=== PATIENT | male | born 1960 | race Two or more races ===

== ENCOUNTER 2021-11-10 12:51 | Emergency (ER) | payer OTHER ==
[~2021-11-10] VITALS: Ht 182.9 cm; Wt 159.1 kg
[2021-11-10 12:55] VITALS: BP 186/86
[2021-11-10] MEDS ORDERED: [UNRECOGNIZED DRUG - CODE] SUBCUT (13:12)
== END 2021-11-10 13:22 | disposition home or self-care (01) ==
LOC: ER 12:53
DX: E11.9 Type 2 diabetes mellitus without complications (principal); E78.00 Pure hypercholesterolemia, unspecified; I10 Essential (primary) hypertension; G89.29 Other chronic pain; Z76.0 Encounter for issue of repeat prescription; Z79.899 Other long term (current) drug therapy
CPT/HCPCS: 99281

== ENCOUNTER 2024-03-05 12:16 | Emergency (ER) | payer OTHER ==
[~2024-03-05] VITALS: Ht 182.9 cm; Wt 154.6 kg
[~2024-03-05 12:16] MED LIST: [UNRECOGNIZED DRUG - CODE] SUBCUT
[2024-03-05 12:26] VITALS: BP 130/54; PULSE 67; RESP 16; TEMP 98.2; O2SAT 97
[2024-03-05 13:44] LABS: BASOPHILS # (AUTO) 0.1 X10'3 (0-0.2); BASOPHILS % (AUTO) 0.8 % (0-1); EOSINOPHILS # (AUTO) 0.2 X10'3 (0-0.9); HEMATOCRIT 45.5 % (42.0-52.0); HEMOGLOBIN 14.7 g/dl (14.0-17.9); LYMPHOCYTES # (AUTO) 1.9 X10'3 (1.1-4.8); LYMPHOCYTES % (AUTO) 18.1 % (21-51); MEAN CORPUSCULAR HEMOGLOBIN 27.3 PG (27.0-31.0); MEAN CORPUSCULAR HGB CONC 32.3 g/dL (33.0-36.5); MEAN CORPUSCULAR VOLUME 84.4 FL (78-98); MEAN PLATELET VOLUME 7.7 FL (7.4-10.4); MONOCYTES # (AUTO) 0.7 X10'3 (0-0.9); MONOCYTES % (AUTO) 7.2 % (2-12); NEUTROPHILS # (AUTO) 7.3 X10'3 (1.8-7.7); NEUTROPHILS % (AUTO) 71.9 % (42-75); PLATELET COUNT 205 X10'3 (140-440); RED BLOOD COUNT 5.39 X10'6 (4.70-6.10); RED CELL DISTRIBUTION WIDTH 15.8 % (11.5-14.5); WHITE BLOOD COUNT 10.2 X10'3 (4.5-11.0)
[2024-03-05 14:06] LABS: ALBUMIN 3.2 G/DL (3.4-5.0); ANION GAP 8 (8-16); BLOOD UREA NITROGEN 22 MG/DL (7-18); BUN/CREATININE RATIO 20.8 (10.0-20.0); CALCIUM 8.9 MG/DL (8.5-10.1); CHLORIDE 105 MMOL/L (99-107); CREATININE 1.06 MG/DL (0.60-1.10); GLUCOSE 74 MG/DL (70-104); POTASSIUM 4.2 MMOL/L (3.5-5.1); PRO BRAIN NATRIURETIC PEPTIDE 156 PG/ML (0-125); SODIUM 138 MMOL/L (135-145); TOTAL CARBON DIOXIDE 24.9 MMOL/L (24-32); eCRCL 77 ML/MIN; eGFR 70 ML/MIN
== END 2024-03-05 13:11 | disposition left against medical advice (07) ==
LOC: ER 12:17
DX: R07.89 Other chest pain (principal); F41.9 Anxiety disorder, unspecified; Z53.21 Procedure and treatment not carried out due to patient leaving prior to being seen by health care provider
CPT/HCPCS: 36415; 71045; 80048; 83880; 84484; 85025; 93005

== ENCOUNTER 2024-03-09 10:23 | Day surgery (SDC) | payer OTHER ==
[2024-03-09] VITALS (8 sets, daily range): BP systolic 117–165; BP diastolic 48–95; PULSE 65–87; RESP 16–20; TEMP 97.4; O2SAT 93–96
[~2024-03-09] VITALS: Ht 180.3 cm; Wt 153.0 kg
[2024-03-09] MEDS ORDERED: SEMA1PEN3 SUBCUT (11:11)
[2024-03-09] MEDS ORDERED: RIVA10TA PO (11:11)
[2024-03-09] MEDS ORDERED: GABA-530 PO (11:11)
[2024-03-09] MEDS ORDERED: BUPR-319 PO (11:11)
[2024-03-09] MEDS ORDERED: CHOL20004 PO (11:11)
[2024-03-09] MEDS ORDERED: ATOR40TA PO (11:11)
[2024-03-09] MEDS ORDERED: LISI40TA13 PO (11:11)
[2024-03-09] MEDS ORDERED: LANTUS SUBCUT (11:11)
[2024-03-09] MEDS ORDERED: EMPA25TA PO (11:11)
[2024-03-09] MEDS ORDERED: FOLI0.4T6 PO (11:11)
[2024-03-09] MEDS ORDERED: INSU100I50 SQ (11:11)
[2024-03-09 11:53] LABS: APTT 27 SECONDS (22-32); INR 1.1 INR; PROTHROMBIN TIME 11.4 SECONDS (9.0-12.0)
[2024-03-09] MEDS ORDERED: nitroGLYCERIN 500mcg/5mL D5W 5 ML IV ONE (11:58)
[2024-03-09] MEDS ORDERED: LIDOcaine 1% (10mg/ml) 2ml vial ONE ×2 (11:59→12:21)
[2024-03-09] MEDS ORDERED: iohexol 350 MG/ML 50ML vial IV ONE (11:59)
[2024-03-09] MEDS ORDERED: midazolam 1 mg/ML 2ml injection ONE ×2 (11:59→13:30)
[2024-03-09] MEDS: diphenhydrAMINE 25mg capsule PO PRN (11:59)
[2024-03-09] MEDS ORDERED: heparin 1,000unit/ml 10ml vial 10 ML ONE (11:59)
[2024-03-09] MEDS ORDERED: fentaNYL/PF 50MCG/1 ML 2ML syringe ONE (11:59)
[2024-03-09] MEDS: LORazepam 0.5 MG tablet PO PRN (11:59)
[2024-03-09] MEDS ORDERED: iohexol 350MG/ML 100ml bottle IV ONE (12:00)
[2024-03-09] MEDS ORDERED: verapamil 2.5 mg/ml inj IV ONE (12:00)
[2024-03-09] MEDS: normal saline 1,000 ML IV SCH (12:00)
[2024-03-09] MEDS ORDERED: OXAZEpam 15mg capsule PO PRN (14:35)
[2024-03-09] MEDS ORDERED: HYDROcodone/acetaminophen 5mg/325mg tablet PO PRN (14:35)
[2024-03-09] MEDS ORDERED: proCHLORperazine 10 MG/2 ml inj IV PRN (14:35)
[2024-03-09] MEDS ORDERED: ondansetron/PF 4mg/2ml inj IV PRN (14:35)
[2024-03-09] MEDS ORDERED: HYDROcodone/acetaminophen 10/325mg tab PO PRN (14:35)
[2024-03-09 14:58] LABS: ISTAT HGB MIX 13.3 g/dl (14.0-17.9); ISTAT Hct MIX 39 %PCV (42-52); ISTAT O2 SATURATION MIX VENOUS 67 % (60-80); ISTAT SOURCE VEN
== END 2024-03-09 16:00 | disposition home or self-care (01) ==
LOC: SSTAY O 10:23
PROVIDERS: ATTEND Student in an Organized Health Care Education/Training Program
DX: I35.0 Nonrheumatic aortic (valve) stenosis (principal); I10 Essential (primary) hypertension; E11.9 Type 2 diabetes mellitus without complications; I25.10 Atherosclerotic heart disease of native coronary artery without angina pectoris; E78.00 Pure hypercholesterolemia, unspecified; G47.33 Obstructive sleep apnea (adult) (pediatric); F32.A Depression, unspecified; E66.9 Obesity, unspecified; F43.10 Post-traumatic stress disorder, unspecified; F12.90 Cannabis use, unspecified, uncomplicated; Z79.4 Long term (current) use of insulin; Z79.1 Long term (current) use of non-steroidal anti-inflammatories (NSAID); Z79.899 Other long term (current) drug therapy; Z98.890 Other specified postprocedural states; Z68.42 Body mass index [BMI] 45.0-49.9, adult
CPT/HCPCS: 36415; 82803; 82948; 85014; 85610; 85730; 93005; 93456; 99152; 99153; J1644; J2250; J3010; J3490; J7030; Q0163; Q9967; A6258; A6402; C1751; C1894

== ENCOUNTER 2024-04-06 11:14 | Outpatient (CLI) | payer OTHER ==
[~2024-04-06 11:14] MED LIST changes: +ATOR40TA PO; +BUPR-565 PO; +CHOL20004 PO; +EMPA25TA PO; +FOLI0.4T6 PO; +GABA-530 PO; +INSU100I50 SQ; +LANTUS SUBCUT; +LISI40TA13 PO; +RIVA10TA PO; +SEMA1PEN3 SUBCUT
[2024-04-06 11:51] LABS: BASOPHILS # (AUTO) 0.1 X10'3 (0-0.2); BASOPHILS % (AUTO) 0.9 % (0-1); EOSINOPHILS # (AUTO) 0.1 X10'3 (0-0.9); EOSINOPHILS % (AUTO) 1.4 % (0-6); HEMATOCRIT 45.4 % (42.0-52.0); HEMOGLOBIN 14.9 g/dl (14.0-17.9); LYMPHOCYTES # (AUTO) 1.5 X10'3 (1.1-4.8); LYMPHOCYTES % (AUTO) 13.7 % (21-51); MEAN CORPUSCULAR HEMOGLOBIN 27.3 PG (27.0-31.0); MEAN CORPUSCULAR HGB CONC 32.8 g/dL (33.0-36.5); MEAN CORPUSCULAR VOLUME 83.3 FL (78-98); MEAN PLATELET VOLUME 7.8 FL (7.4-10.4); MONOCYTES # (AUTO) 0.6 X10'3 (0-0.9); MONOCYTES % (AUTO) 5.7 % (2-12); NEUTROPHILS # (AUTO) 8.7 X10'3 (1.8-7.7); NEUTROPHILS % (AUTO) 78.3 % (42-75); PLATELET COUNT 179 X10'3 (140-440); RED BLOOD COUNT 5.46 X10'6 (4.70-6.10); RED CELL DISTRIBUTION WIDTH 16.4 % (11.5-14.5); WHITE BLOOD COUNT 11.1 X10'3 (4.5-11.0)
[2024-04-06 11:59] LABS: APTT 29 SECONDS (22-32); INR 1.1 INR; PROTHROMBIN TIME 11.4 SECONDS (9.0-12.0)
[2024-04-06 12:01] LABS: ALANINE AMINOTRANSFERASE 32 U/L (12-78); ALBUMIN 3.2 G/DL (3.4-5.0); ALBUMIN/GLOBULIN RATIO 0.8 (1.1-1.5); ALKALINE PHOSPHATASE 89 IU/L (46-116); ANION GAP 8 (8-16); ASPARTATE AMINO TRANSFERASE 16 U/L (10-37); BILIRUBIN,TOTAL 0.7 MG/DL (0.1-1.0); BLOOD UREA NITROGEN 25 MG/DL (7-18); BUN/CREATININE RATIO 23.8 (10.0-20.0); CALCIUM 9.5 MG/DL (8.5-10.1); CHLORIDE 103 MMOL/L (99-107); CREATININE 1.05 MG/DL (0.60-1.10); GLUCOSE 118 MG/DL (70-104); POTASSIUM 4.4 MMOL/L (3.5-5.1); SODIUM 139 MMOL/L (135-145); TOTAL CARBON DIOXIDE 27.7 MMOL/L (24-32); TOTAL PROTEIN 7.4 G/DL (6.4-8.2); eGFR 71 ML/MIN
[2024-04-06 12:08] LABS: PRO BRAIN NATRIURETIC PEPTIDE 151 PG/ML (0-125)
[2024-04-06] MEDS ORDERED: IODIXANOL 320 MG/ML INFUS..BTL 100ML IV ONE (12:13)
== END 2024-04-06 23:59 | disposition home or self-care (01) ==
LOC: 64 CT 11:14
PROVIDERS: ATTEND Internal Medicine Cardiovascular Disease
DX: R91.1 Solitary pulmonary nodule (principal); I35.0 Nonrheumatic aortic (valve) stenosis; R06.02 Shortness of breath; N28.1 Cyst of kidney, acquired; I65.29 Occlusion and stenosis of unspecified carotid artery; J43.9 Emphysema, unspecified; J84.10 Pulmonary fibrosis, unspecified
CPT/HCPCS: 36415; 71046; 71275; 74174; 75572; 80053; 83880; 85025; 85610; 85730; Q9967

== ENCOUNTER 2024-06-15 18:39 | Emergency (ER) | payer OTHER ==
[~2024-06-15] VITALS: Ht 177.8 cm; Wt 144.1 kg
[~2024-06-15 18:39] MED LIST changes: +ASPI81TA53 PO; -FOLI0.4T6 PO; +HYDR-3972 PO; +IPRA4AER INH; -LISI40TA13 PO; +LOP25T PO; -RIVA10TA PO; +WARF2.5T82 PO; -[UNRECOGNIZED DRUG - CODE] SUBCUT
[2024-06-15 19:23] LABS: ALANINE AMINOTRANSFERASE 31 U/L (12-78); ALBUMIN/GLOBULIN RATIO 0.8 (1.1-1.5); ALKALINE PHOSPHATASE 85 IU/L (46-116); ANION GAP 8 (8-16); ASPARTATE AMINO TRANSFERASE 24 U/L (10-37); BASOPHILS # (AUTO) 0.1 X10'3 (0-0.2); BASOPHILS % (AUTO) 0.5 % (0-1); BILIRUBIN,TOTAL 0.6 MG/DL (0.1-1.0); BLOOD UREA NITROGEN 27 MG/DL (7-18); CALCIUM 9.4 MG/DL (8.5-10.1); CHLORIDE 104 MMOL/L (99-107); CREATININE 1.35 MG/DL (0.60-1.10); EOSINOPHILS # (AUTO) 0.4 X10'3 (0-0.9); EOSINOPHILS % (AUTO) 3.1 % (0-6); GLUCOSE 174 MG/DL (70-104); HEMATOCRIT 40.3 % (42.0-52.0); HEMOGLOBIN 13.1 g/dl (14.0-17.9); LYMPHOCYTES # (AUTO) 1.8 X10'3 (1.1-4.8); LYMPHOCYTES % (AUTO) 15.2 % (21-51); MEAN CORPUSCULAR HEMOGLOBIN 27.8 PG (27.0-31.0); MEAN CORPUSCULAR HGB CONC 32.4 g/dL (33.0-36.5); MEAN CORPUSCULAR VOLUME 85.6 FL (78-98); MEAN PLATELET VOLUME 7.9 FL (7.4-10.4); NEUTROPHILS # (AUTO) 8.8 X10'3 (1.8-7.7); NEUTROPHILS % (AUTO) 73.2 % (42-75); PLATELET COUNT 236 X10'3 (140-440); POTASSIUM 4.3 MMOL/L (3.5-5.1); RED BLOOD COUNT 4.71 X10'6 (4.70-6.10); RED CELL DISTRIBUTION WIDTH 15.7 % (11.5-14.5); SODIUM 138 MMOL/L (135-145); TOTAL CARBON DIOXIDE 26.4 MMOL/L (24-32); TOTAL PROTEIN 6.6 G/DL (6.4-8.2); WHITE BLOOD COUNT 12.1 X10'3 (4.5-11.0); eCRCL 57 ML/MIN; eGFR 53 ML/MIN
[2024-06-15 19:31] LABS: PRO BRAIN NATRIURETIC PEPTIDE 831 PG/ML (0-125)
[2024-06-15 20:15] VITALS: TEMP 98.7
[2024-06-15] MEDS ORDERED: iohexol 350MG/ML 100ml bottle IV ONE (21:03)
[2024-06-16 00:19] VITALS: BP 128/89; PULSE 89; RESP 18; O2SAT 98
== END 2024-06-16 00:21 | disposition home or self-care (01) ==
LOC: ER 18:39
DX: R07.9 Chest pain, unspecified (principal); E78.00 Pure hypercholesterolemia, unspecified; I10 Essential (primary) hypertension; E11.9 Type 2 diabetes mellitus without complications; G89.29 Other chronic pain; M54.9 Dorsalgia, unspecified; Z79.899 Other long term (current) drug therapy; Z79.82 Long term (current) use of aspirin; Z79.4 Long term (current) use of insulin
CPT/HCPCS: 36415; 71045; 71275; 80053; 83880; 84484; 85025; 93005; 99285; Q9967